=== PATIENT | male | born 1985 | race Caucasian/White ===

== ENCOUNTER → 2021-01-11 | Outpatient (CLI) | payer MEDICARE ==
[2021-01-11 14:21] LABS: LUTEINIZING HORMONE 4.8 mIU/mL (1.5-9.3)
== END ==
LOC: M PLALAB 09:32
PROVIDERS: ATTEND Internal Medicine Endocrinology, Diabetes & Metabolism
DX: R94.6 Abnormal results of thyroid function studies (principal)